=== PATIENT | male | born 1990 | race Caucasian/White ===

== ENCOUNTER 2020-03-24 01:41 | Emergency (ER) | payer SELFPAY ==
[~2020-03-24] VITALS: Ht 177.8 cm; Wt 74.8 kg
[2020-03-24] MEDS ORDERED: AMOCLA875 PO (01:57)
== END 2020-03-24 02:16 | disposition home or self-care (01) ==
LOC: ER 01:41
DX: H66.92 Otitis media, unspecified, left ear (principal); F17.210 Nicotine dependence, cigarettes, uncomplicated
CPT/HCPCS: 99283; J1885

== ENCOUNTER → 2020-08-16 | Outpatient (CLI) | payer OTHER ==
[~2020-08-16] MED LIST: AMOCLA875 PO
[2020-08-16 21:00] LABS: Creatinine, Urine Random 69.7 mg/dL (27.00-270.00); Microalb/Creat Ratio UR, Rand 10.086 mg/g (0.000-30.000); Microalbumin, Random Urine 7.03 mg/L (0.000-20.000)
== END | disposition home or self-care (01) ==
LOC: LAB SHORT 19:08 → LAB 19:08
PROVIDERS: Family Medicine
DX: E13.9 Other specified diabetes mellitus without complications (principal)
CPT/HCPCS: 82043; 82570

== ENCOUNTER → 2021-05-15 | Outpatient (CLI) | payer OTHER ==
[2021-05-15 12:04] LABS: BASOPHILS ABSOLUTE AUTO 0.02 K/mm3 (0.00-0.23); BASOPHILS PERCENT AUTO 1 % (0-2); EOSINOPHILS ABSOLUTE AUTO 0.02 K/mm3 (0.00-0.68); EOSINOPHILS PERCENT AUTO 1 % (0-6); Hematocrit 44.6 % (37.0-53.0); Hemoglobin 15.1 g/dL (13.5-17.5); IMMATURE GRAN PERCENT AUTO 0 % (0-1); LYMPHOCYTES ABSOLUTE AUTO 1.38 K/mm3 (0.84-5.20); LYMPHOCYTES PERCENT AUTO 46 % (21-46); MONOCYTES ABSOLUTE AUTO 0.31 K/mm3 (0.16-1.47); MONOCYTES PERCENT AUTO 10 % (4-13); Mean Corpuscular HGB 30.6 pg (26.0-34.0); Mean Corpuscular HGB Conc 33.9 g/dL (31.5-36.5); Mean Corpuscular Volume 90 fL (80-100); Mean Platelet Volume 10.6 fL (9.1-12.4); NEUTROPHILS PERCENT AUTO 43 % (41-73); Platelet Count 152 K/mm3 (150-400); RDW Coefficient Variation 11.7 % (11.7-14.2); RDW Standard Deviation 38.5 fL (35.1-46.3); Red Blood Cell Count 4.94 M/mm3 (4.30-5.90); White Blood Cell Count 3.03 K/mm3 (4.00-11.30)
[2021-05-15 12:56] LABS: Anion Gap 11 mmol/L (6-16); Blood Urea Nitrogen 10 mg/dL (8-24); Bun/Creatinine Ratio 14.1 (12.0-20.0); CO2, Blood 29 mmol/L (21-32); Calcium, Blood 8.7 mg/dL (8.5-10.1); Chloride, Blood 101 mmol/L (98-108); Creatinine, Blood 0.71 mg/dL (0.60-1.20); Glomerular Filtration Rate >60 (60-); Glucose, Blood 186 mg/dL (70-99); Potassium, Blood 4.2 mmol/L (3.5-5.5); Sodium, Blood 141 mmol/L (136-145)
== END ==
LOC: LAB SHORT 11:58 → LAB 11:58
PROVIDERS: Physician Assistant Surgical
DX: E86.0 Dehydration (principal)
CPT/HCPCS: 80048; 85025

== ENCOUNTER 2022-08-29 05:25 | Emergency (ER) | payer OTHER ==
[~2022-08-29] VITALS: Ht 182.9 cm; Wt 81.7 kg
[2022-08-29 08:45] VITALS: BP 117/84
== END 2022-08-29 09:00 | disposition home or self-care (01) ==
LOC: ER 05:25
DX: S92.251A Displaced fracture of navicular [scaphoid] of right foot, initial encounter for closed fracture (principal); F10.10 Alcohol abuse, uncomplicated; E10.9 Type 1 diabetes mellitus without complications; F17.210 Nicotine dependence, cigarettes, uncomplicated; V86.95XA Unspecified occupant of 3- or 4- wheeled all-terrain vehicle (ATV) injured in nontraffic accident, initial encounter
CPT/HCPCS: 73610; 73630; 99283-25; A9270

== ENCOUNTER 2023-01-21 17:49 | Inpatient (IN) | payer OTHER ==
[~2023-01-21] VITALS: Ht 175.3 cm; Wt 73.1 kg
[2023-01-21] VITALS (11 sets, daily range): BP systolic 120–144; BP diastolic 57–82
[~2023-01-21 17:49] MED LIST changes: -BASAGLAR K100 UNIT/1 SC; -NOVOLOG FL100 UNIT/3 SQ
[2023-01-21 18:02] LABS: Source, Urine Clean Catch
[2023-01-21 18:05] LABS: Appearance, Urine Clear (Clear); Bilirubin, Urine Neg (Neg); Blood, Urine Neg (Neg); Glucose Qualitative, Urine 4+ (Neg); Ketones, Urine 4+ (Neg); Leukocyte Esterase, Urine Neg (Neg); Nitrite, Urine Neg (Neg); Protein, Urine 2+ (Neg); Specific Gravity, Urine 1.025 (1.003-1.022); Urobilinogen, Urine NORM (Normal)
[2023-01-21 18:10] LABS: Color, Urine Pale Yellow (P-Yellow)
[2023-01-21 18:11] LABS: Red Blood Cells, Urine 0-2 /hpf (0-2); White Blood Cells, Urine 0-2 /hpf (0-5)
[2023-01-21 18:12] LABS: Bacteria Rare /hpf; Squamous Epithelial Cells Rare /hpf (Few)
[2023-01-21 18:30] LABS: Base Excess Venous -27.6 mmol/L; Bicarbonate Venous 7.4 mmol/L (24.0-30.0); PCO2 Venous 18.1 mmHg (38-42)
[2023-01-21 18:31] LABS: pH Blood Venous 6.97 (7.34-7.37)
[2023-01-21] MEDS ORDERED: BASAGLAR K100 UNIT/1 SC ×2 (19:40→19:43)
[2023-01-21] MEDS ORDERED: NOVOLOG FL100 UNIT/3 SQ (19:40)
[2023-01-21 19:54] LABS: Bun/Creatinine Ratio 20.7 (12.0-20.0); Creatinine, Blood 0.92 mg/dL (0.60-1.20); Potassium, Blood 6.2 mmol/L (3.5-5.5)
[2023-01-21 19:56] LABS: Calcium, Blood 5.2 mg/dL (8.5-10.1)
[2023-01-21 21:15] LABS: U Amphetamine Screen Not Detected; U Barbituate Screen Not Detected; U Benzodiazapine Screen Not Detected; U Buprenorphine Screen Not Detected; U Cannabinoids Screen Not Detected; U Cocaine Screen Not Detected; U Methadone Screen Not Detected; U Methamphetamine Screen Not Detected; U Opiates Screen Not Detected; U Oxycodone Screen Not Detected; U Phencyclidine Screen Not Detected; U Propoxyphene Screen Not Detected
--- NOTE | 2023-01-21 21:35 | NUR ---
ADMISSION ASSUME CARE. PT TRANSFERRED FROM ER BED TO ROOM BED. ALERT AND ORIENTED BUT DROWSY. BS CHECKED SEE LAB RESULTS. INSULIN AND NS INFUSING PER EMAR. URINAL GIVEN TO PATIENT FOR FREQUENT VOIDING. PATIENT ON ROOM AIR BUT TACHYPNEA AND DENIES SOB.
[2023-01-21 23:28] LABS: Bun/Creatinine Ratio 18.9 (12.0-20.0); Calcium, Blood 7.8 mg/dL (8.5-10.1); Creatinine, Blood 0.95 mg/dL (0.60-1.20); Potassium, Blood 6.5 mmol/L (3.5-5.5)
[2023-01-22] VITALS (21 sets, daily range): BP systolic 102–137; BP diastolic 63–81
[2023-01-22 03:02] LABS: BASOPHILS ABSOLUTE AUTO 0.04 K/mm3 (0.00-0.23); BASOPHILS PERCENT AUTO 0 % (0-2); EOSINOPHILS PERCENT AUTO 0 % (0-6); Hemoglobin 13.3 g/dL (13.5-17.5); IMMATURE GRAN ABSOLUTE AUTO 0.08 K/mm3 (0.00-0.10); IMMATURE GRAN PERCENT AUTO 1 % (0-1); LYMPHOCYTES PERCENT AUTO 7 % (21-46); MONOCYTES PERCENT AUTO 10 % (4-13); Mean Corpuscular HGB 31.7 pg (26.0-34.0); Mean Corpuscular HGB Conc 33.3 g/dL (31.5-36.5); Mean Corpuscular Volume 96 fL (80-100); Mean Platelet Volume 10.4 fL (9.1-12.4); NEUTROPHILS ABSOLUTE AUTO 14.28 K/mm3 (1.96-9.15); NEUTROPHILS PERCENT AUTO 82 % (41-73); Platelet Count 230 K/mm3 (150-400); RDW Coefficient Variation 11.6 % (11.7-14.2); RDW Standard Deviation 40.1 fL (35.1-46.3); Red Blood Cell Count 4.19 M/mm3 (4.30-5.90)
[2023-01-22 03:27] LABS: Bun/Creatinine Ratio 15.7 (12.0-20.0); Calcium, Blood 7.4 mg/dL (8.5-10.1); Creatinine, Blood 0.89 mg/dL (0.60-1.20); Potassium, Blood 4.8 mmol/L (3.5-5.5)
--- NOTE | 2023-01-22 07:00 | NUR ---
ASSUMPTION OF CARE PT RECEIVING D51/2NS 150ML/HR AND INSULIN GTT 3UNITS/HR. PT IS ALERT AND ORIETNED. REPORTS FEELING BETTER THAN YESTERDAY. HR 90S, BP STABLE. URINAL AT BEDSIDE. BED IN LOW POSITION AND CALL LIGHT WITHIN REACH.
[2023-01-22 07:12] LABS: Bun/Creatinine Ratio 16.4 (12.0-20.0); Calcium, Blood 7.7 mg/dL (8.5-10.1); Creatinine, Blood 0.79 mg/dL (0.60-1.20); Potassium, Blood 4.5 mmol/L (3.5-5.5)
--- NOTE | 2023-01-22 09:19 | NUR ---
UPDATE PT REPORTS HEADACHE, MEDICATED PER EMAR. PT REPORTS DISCOMFORT, ENCOURAGED PT TO SIT IN RECLINER. PT INDEPENDENTLY STANDS AND WALKS TO RECLINER. DR VILLAFUERTE AT BEDSIDE FOR EVAL. PLAN TO DISCONTINUE INSULIN GTT AND FLUIDS AND START SC REGIMEN. ADA DIET PLACED. PT TRANSITIONED TO MEDICAL STATUS. GIRLFRIEND LAMAR AT BEDSIDE, UPDATED ON PLAN OF CARE.
[2023-01-22 12:21] LABS: Bun/Creatinine Ratio 14.3 (12.0-20.0); Calcium, Blood 8.1 mg/dL (8.5-10.1); Creatinine, Blood 0.77 mg/dL (0.60-1.20); Potassium, Blood 4.8 mmol/L (3.5-5.5)
--- NOTE | 2023-01-22 12:21 | NUR ---
UPDATE PT RESTING IN RECLINER AND REQUESTS TO REST. HE REMAINS ALERT AND ORIENTED. INDEPENDENT WITH ADLS. CALL LIGHT WITHIN REACH.
[2023-01-22 13:23] LABS: Bun/Creatinine Ratio 15.9 (12.0-20.0); Calcium, Blood 8.5 mg/dL (8.5-10.1); Creatinine, Blood 0.76 mg/dL (0.60-1.20); Potassium, Blood 4.6 mmol/L (3.5-5.5)
--- NOTE | 2023-01-22 17:41 | NUR ---
SHIFT SUMMARY INSULIN GTT OFF THIS MORNING AND PT TRANSITIONED TO SC REGIMEN. HE REMAINS ALERT AND ORIENTED. INDEPENDENT IN ROOM AND WITH ADLS. PT REQUESTED TO REST MOST OF THE DAY. HE HAS BEEN SITTING UP IN THE RECLINER THIS MORNING. VSS THROUGHOUT THE SHIFT. PT HAS URINATED SEVERAL TIMES THIS SHIFT INDEPENDENTLY. HE DOES HAVE A 5/10 HEADACHE, MEDICATED PER EMAR. OTHERWISE HE REPORTS FEELING OVERALL BETTER THAN YESTERDAY. HIS GIRLFRIEND HAS BEEN VISITING AND UPDATED ON PLAN OF CARE.
--- NOTE | 2023-01-22 20:00 | NUR ---
ASSUMED CARE OF PT AT 1900. REPORT RECEIVED AT BEDSIDE. PT PRESENTS IN ROOM. SOMEWHAT FLAT AFFECT. PT'S S.O. IN ROOM WITH PT. PT ABLE TO ANSWER QUESTIONS. PLEASANT AND COOPERATIVE WITH CARE AND ASSESSMENT. PT MADE AWARE OF PENDING TRANSFER TO ROOM 304. PT IN AGREEMENT WITH TRANSFER. WILL REVIEW CHART AND PLAN OF CARE FOR THIS PT.
--- NOTE | 2023-01-22 21:37 | NUR ---
PT'S VSS. UP IN ROOM INDEPENDENTLY. PT DEMONSTRATES GOOD TECHNIQUE WITH INSULLIN ADMINISTRATION. DID SPEAK TO PT ABOUT ROTATION OF SITES FOR INJECTIONS. PT VERBALIZES UNDERSTANDING. REPORT GIVEN TO ABRAHAM SALAZAR. PT TO BE TRANSFERRED TO ROOM 304.
[2023-01-23 05:00] VITALS: BP 112/70
[2023-01-23 05:34] LABS: Bun/Creatinine Ratio 17.1 (12.0-20.0); Calcium, Blood 8.6 mg/dL (8.5-10.1); Creatinine, Blood 0.76 mg/dL (0.60-1.20); Potassium, Blood 4.1 mmol/L (3.5-5.5)
--- NOTE | 2023-01-23 06:08 | NUR ---
NOC SHIFT SUMMARY: PATIENT TRANSFERRED FROM ICU LAST NIGHT. HERE FOR DKA. PATIENT TO DISCHARGE HOME TODAY. A&O X4. INDEPENDENT.
[2023-01-23 07:32] VITALS: BP 108/72
--- NOTE | 2023-01-23 12:13 | NUR ---
DISCHARGE SUMMARY: PT EDUCATED ON DISCHARGE PLAN AND MEDICATIONS. PT VU. PT REPORTED HE WAS GOING TO ESTABLISH CARE WITH [facility] SO REFERRAL WAS SENT TO THEM. PT REPORTED HE WAS USING FRIENDS INSULIN AND ENDED UP RUNNING OUT. PT EDUCATED ON IMPORTANCE OF ESTABLISHING CARE WITH PCP AND MONITORING INSULIN NEEDS. PT REPORTED HE HAS ALL THE SUPPLIES HE NEEDS TO GIVE INSULIN JUST NOT INSULIN. RX SENT TO [facility]. BELONGINGS SENT WITH PT. PT DENIED NEED FOR WC AND LEFT WITH HIS FRIEND.
== END 2023-01-23 12:04 | disposition home or self-care (01) | DRG 638 ==
LOC: ER 17:49 → ICUE 21:29 → MEDS 21:29 → ICUE 21:35 → MEDS 01-22 21:46
PROVIDERS: Emergency Medicine; Internal Medicine; Nurse Practitioner Acute Care; Student in an Organized Health Care Education/Training Program; ADMIT Internal Medicine
DX: E10.10 Type 1 diabetes mellitus with ketoacidosis without coma (principal); E44.0 Moderate protein-calorie malnutrition; E87.5 Hyperkalemia; F10.20 Alcohol dependence, uncomplicated; E83.51 Hypocalcemia; F17.210 Nicotine dependence, cigarettes, uncomplicated; Z20.822 Contact with and (suspected) exposure to COVID-19; R51.9 Headache, unspecified; F12.90 Cannabis use, unspecified, uncomplicated; M79.10 Myalgia, unspecified site; Z68.23 Body mass index [BMI] 23.0-23.9, adult; Z79.899 Other long term (current) drug therapy; Z79.4 Long term (current) use of insulin; Z71.41 Alcohol abuse counseling and surveillance of alcoholic
CPT/HCPCS: 36415; 36416; 80048; 81001; 82010; 82330; 82803; 82947; 83690; 83735; 85025; 87040; 93005; 93010; 96361; 96374; 96375; 99285-25; A9270; J0612; J1790; J1815; J1885; J2405; J3475; J7030; J7042; J7120

== ENCOUNTER → 2023-01-21 | Outpatient (CLI) | payer OTHER ==
[~2023-01-21] MED LIST changes: +BASAGLAR K100 UNIT/1 SC; +NOVOLOG FL100 UNIT/3 SQ
[2023-01-21 17:00] LABS: BASOPHILS ABSOLUTE AUTO 0.15 K/mm3 (0.00-0.23); BASOPHILS PERCENT AUTO 1 % (0-2); EOSINOPHILS PERCENT AUTO 0 % (0-6); Hematocrit 50.3 % (37.0-53.0); Hemoglobin 16.3 g/dL (13.5-17.5); IMMATURE GRAN ABSOLUTE AUTO 0.13 K/mm3 (0.00-0.10); IMMATURE GRAN PERCENT AUTO 1 % (0-1); LYMPHOCYTES ABSOLUTE AUTO 1.46 K/mm3 (0.84-5.20); LYMPHOCYTES PERCENT AUTO 7 % (21-46); MONOCYTES ABSOLUTE AUTO 1.77 K/mm3 (0.16-1.47); MONOCYTES PERCENT AUTO 9 % (4-13); Mean Corpuscular HGB 31.3 pg (26.0-34.0); Mean Corpuscular HGB Conc 32.4 g/dL (31.5-36.5); Mean Corpuscular Volume 97 fL (80-100); Mean Platelet Volume 10.9 fL (9.1-12.4); NEUTROPHILS ABSOLUTE AUTO 17.21 K/mm3 (1.96-9.15); NEUTROPHILS PERCENT AUTO 83 % (41-73); Platelet Count 317 K/mm3 (150-400); RDW Coefficient Variation 11.6 % (11.7-14.2); RDW Standard Deviation 40.8 fL (35.1-46.3); Red Blood Cell Count 5.21 M/mm3 (4.30-5.90); White Blood Cell Count 20.72 K/mm3 (4.00-11.30)
[2023-01-21 17:13] LABS: Bun/Creatinine Ratio 13.5 (12.0-20.0); Creatinine, Blood 1.56 mg/dL (0.60-1.20); Potassium, Blood 5.6 mmol/L (3.5-5.5); Total Protein, Blood 8.9 g/dL (6.4-8.2)
[2023-01-21 17:28] LABS: Albumin, Blood 4.8 g/dL (3.4-5.0); Albumin/Globulin Ratio 1.2 (0.8-1.8); Bilirubin, Total 1.4 mg/dL (0.1-1.0); Calcium, Blood 9.7 mg/dL (8.5-10.1); Globulin, Blood 4.1 g/dL (2.2-4.0)
== END ==
LOC: LAB 16:56 → LAB SHORT 16:56
PROVIDERS: Physician Assistant
DX: E10.9 Type 1 diabetes mellitus without complications (principal)
CPT/HCPCS: 80053; 85025

== ENCOUNTER 2023-08-14 02:50 | Emergency (ER) | payer OTHER ==
[~2023-08-14] VITALS: Ht 175.3 cm; Wt 74.8 kg
[~2023-08-14 02:50] MED LIST changes: +BASAGLAR K100 UNIT/1 SC; +NOVOLOG FL100 UNIT/3 SQ
[2023-08-14 03:23] VITALS: BP 126/86
== END 2023-08-14 03:35 | disposition left against medical advice (07) ==
LOC: ER 02:50
DX: Z53.21 Procedure and treatment not carried out due to patient leaving prior to being seen by health care provider (principal)
CPT/HCPCS: 82947

== ENCOUNTER 2024-06-13 00:41 | Inpatient (IN) | payer OTHER ==
[~2024-06-13] VITALS: Ht 177.8 cm; Wt 71.8 kg
[2024-06-13] VITALS (29 sets, daily range): BP systolic 92–132; BP diastolic 62–82
[2024-06-13] MEDS ORDERED: NS 1,000 ML IV SCH (01:05)
[2024-06-13] MEDS ORDERED: Lactated Ringer's 1,000 ML IV ONE (01:10)
[2024-06-13] MEDS ORDERED: Metoclopramide HCl 5MG / ML 2ML Vial IV ONE (01:10)
[2024-06-13] MEDS ORDERED: Morphine Sulfate 4 MG/1 ML Injection IV ONE (01:10)
[2024-06-13 01:40] LABS: Base Excess Venous -21.3 mmol/L; PCO2 Venous 23.4 mmHg (38-42); pH Blood Venous 7.13 (7.34-7.37)
[2024-06-13 01:59] LABS: BASOPHILS ABSOLUTE AUTO 0.05 K/mm3 (0.00-0.23); BASOPHILS PERCENT AUTO 1 % (0-2); EOSINOPHILS ABSOLUTE AUTO 0.08 K/mm3 (0.00-0.68); EOSINOPHILS PERCENT AUTO 1 % (0-6); Hematocrit 46.8 % (37.0-53.0); Hemoglobin 15.7 g/dL (13.5-17.5); IMMATURE GRAN ABSOLUTE AUTO 0.07 K/mm3 (0.00-0.10); IMMATURE GRAN PERCENT AUTO 1 % (0-1); LYMPHOCYTES ABSOLUTE AUTO 1.69 K/mm3 (0.84-5.20); LYMPHOCYTES PERCENT AUTO 24 % (21-46); MONOCYTES PERCENT AUTO 10 % (4-13); Mean Corpuscular HGB 31.3 pg (26.0-34.0); Mean Corpuscular HGB Conc 33.5 g/dL (31.5-36.5); Mean Corpuscular Volume 93 fL (80-100); Mean Platelet Volume 10.3 fL (9.1-12.4); NEUTROPHILS ABSOLUTE AUTO 4.49 K/mm3 (1.96-9.15); NEUTROPHILS PERCENT AUTO 63 % (41-73); Platelet Count 248 K/mm3 (150-400); RDW Coefficient Variation 11.9 % (11.7-14.2); RDW Standard Deviation 40.9 fL (35.1-46.3); Red Blood Cell Count 5.02 M/mm3 (4.30-5.90); White Blood Cell Count 7.08 K/mm3 (4.00-11.30)
[2024-06-13 02:24] LABS: Magnesium, Blood 1.8 mg/dL (1.6-2.4)
[2024-06-13 02:35] LABS: Albumin, Blood 4.3 g/dL (3.4-5.0); Albumin/Globulin Ratio 1.2 (0.8-1.8); Bilirubin, Total 1.3 mg/dL (0.1-1.0); Creatinine, Blood 0.93 mg/dL (0.60-1.20); Globulin, Blood 3.7 g/dL (2.2-4.0); Potassium, Blood 4.4 mmol/L (3.5-5.5)
[2024-06-13] MEDS ORDERED: Potassium Chl 20MEQ/Water100ML 100 ML IV ONE (02:40)
[2024-06-13 02:45] LABS: Calcium, Ionized (POC) 1.21 mmol/L (1.10-1.46); Chloride (POC) 105 mmol/L (98-108); Creatinine (POC) 0.8 mg/dL (0.8-1.3); Glucose (ISTAT POC) 275 mg/dL (70-99); Hemoglobin (POC) 15.6 g/dL (13.5-17.5); Potassium (POC) 4.8 mmol/L (3.5-5.5); Sodium (POC) 132 mmol/L (135-148); Total CO2 (POC) 11 mmol/L (21-32)
[2024-06-13] MEDS ORDERED: Insulin Human Regular 100 UNIT in NS 100 ML IV SCH ×2 (02:45→04:15)
[2024-06-13 02:53] LABS: Beta-hydroxybutyrate 108.3 mg/dL (0.2-2.8); Bun/Creatinine Ratio 12.9 (12.0-20.0)
[2024-06-13] MEDS ORDERED: Ondansetron HCl 2 MG / ML 2ML Vial IV PRN (03:40)
[2024-06-13] MEDS ORDERED: Magnesium Hydroxide Conc 10 ML UDC PO PRN (03:40)
[2024-06-13] MEDS ORDERED: D5W-1/2NS 1,000 ML IV SCH (04:00)
--- NOTE | 2024-06-13 05:29 | NUR ---
ASSUMPTION OF CARE ASSUMED CARE OF PATIENT AT APPROXIMATELY 0423. PT ALERT AND ORIENTED, ANSWERS QUESTIONS APPROPRIATELY, FOLLOWS DIRECTION WHEN PROMPTED AND IS ABLE TO MAKE HIS NEEDS KNOWN. PT MOVES EXTREMITIES EQUALLY BILATERALLY. PT TANSFERED FROM ER GURNEY TO ICU BED VIA SBA. HR 80-90'S SINUS, MAP >65, PT DENIES CP/PRESSURE. PT ON RA, OXYGEN SATURATION >95%. ABDOMEN SOFT, BOWEL TONES HYPOACTIVE. PT USES URINAL TO VOID. PIV IN PLACE TO RAC AND LEFT WRIST. INSULIN INFUSING AT 4UNITS/HR, D5 1/2 NS INFUSING AT 150MLS/HR. BED IN LOWEST POSIITON, CALL LIGHT WITHIN REACH, CARE CONTINUES.
[2024-06-13] MEDS ORDERED: Acetaminophen 325 MG TABLET PO PRN (06:25)
[2024-06-13 06:38] LABS: Bun/Creatinine Ratio 12.3 (12.0-20.0); Calcium, Blood 8.5 mg/dL (8.5-10.1); Creatinine, Blood 0.73 mg/dL (0.60-1.20); Potassium, Blood 4.7 mmol/L (3.5-5.5)
[2024-06-13] MEDS ORDERED: Enoxaparin 40 MG/0.4 ML SYR SC SCH (09:00)
--- NOTE | 2024-06-13 09:06 | NUR ---
Assumed patient at 0700 Patient Jalen was sleeping upon arrival. Patient was easy to wake. He is alert and oriented x 4. Patient MAEW. PPPx4 extrem, no edema noted. Patient has two piv's with insulin gtt going at 4 unit/hr and D5 1/2 at 150/hr. Patient able to void 1025 clear yellow urine this am. He remains NPO till transition off insulin. Patient's headache has dissipated come this am. No other acute pain. VS stable pt remains afebrile. No family at bedside at this time.
[2024-06-13 10:09] LABS: Bun/Creatinine Ratio 10.4 (12.0-20.0); Calcium, Blood 8.2 mg/dL (8.5-10.1); Creatinine, Blood 0.67 mg/dL (0.60-1.20)
[2024-06-13] MEDS ORDERED: Potassium Chloride 20 MEQ in NS 90 ML IV ONE (11:15)
[2024-06-13 14:26] LABS: Bun/Creatinine Ratio 12.7 (12.0-20.0); Calcium, Blood 8.1 mg/dL (8.5-10.1); Creatinine, Blood 0.63 mg/dL (0.60-1.20)
--- NOTE | 2024-06-13 18:18 | NUR ---
END OF SHIFT NOTE PT HAD BEEN FEELING BETTER THE DAY HAS PROGRESSED. HE HAS BEEN ABLE TO EAT SOME MEALS THIS AFTERNOON AND HOLD THEM DOWN. HE STILL REMAINS ON INSULIN GTT AND D5 1/2 NS AT 150/HR. HE IS CURRENTLY AT 2.5U/HR OF INSULIN. PT IS TO HAVE ANOTHER CHEM MARTEL. THIS EVENING. HIS LAST ANION GAP AT 1300 WAS 13. HAS BEEN TO BEDSIDE TODAY, EAGER TO HAVE HIM HOME. VS HAVE REMAINED STABLE AND HE REMAINS AFEBRILE TODAY. CARE MANAGEMENT AND THE PHARMACYST IN ICU TODAY HAS WORKED DILIGENTLY TO FIND RESOURCES FOR HIM TO HAVE SO HE CAN CHECK HIS GLUCOSE LEVELS AND GIVE INSULIN COVERAGE WHEN HE IS ABLE TO GO HOME. WILL GIVE REPORT TO NEXT SHIFT TO RESUME CARE.
--- NOTE | 2024-06-13 18:47 | NUR ---
Pt. is awake in bed when he welcomed my visit. Spouse was present. Facilitated a lengthy life review. Pt. shared how he has dealt with his diabetes over the past several years. P.t verbalized that alena was not a formal part of his life but appreciated with visit. Will remain available tothe Pt. and spouse.
[2024-06-13 19:20] LABS: Albumin, Blood 3.1 g/dL (3.4-5.0); Albumin/Globulin Ratio 1.1 (0.8-1.8); Bilirubin, Total 1.2 mg/dL (0.1-1.0); Bun/Creatinine Ratio 16.8 (12.0-20.0); Calcium, Blood 8.1 mg/dL (8.5-10.1); Creatinine, Blood 0.65 mg/dL (0.60-1.20); Globulin, Blood 2.9 g/dL (2.2-4.0)
[2024-06-13] MEDS ORDERED: Insulin Glargine-Yfgn 100 Unit/mL 3 ML SYR SC SCH (20:00)
[2024-06-13 22:33] LABS: Albumin, Blood 3.1 g/dL (3.4-5.0); Bilirubin, Total 0.6 mg/dL (0.1-1.0); Bun/Creatinine Ratio 24.4 (12.0-20.0); Calcium, Blood 8.2 mg/dL (8.5-10.1); Creatinine, Blood 0.61 mg/dL (0.60-1.20); Potassium, Blood 3.7 mmol/L (3.5-5.5); Total Protein, Blood 6.1 g/dL (6.4-8.2)
--- NOTE | 2024-06-13 23:11 | NUR ---
UPDATE 2034 PT GIVEN 16 UNITS SUBQ GLARGINE INSULIN PER ORDERS, REMAINS ON INSULIN GTT AND EVERY 1 HOUR CBG CHECKS 0 PT SITTING UP IN BED EATING SNACK OF CRACKERS AND CHEESE 2229 CBG 152, ANION GAP CLOSED, CALLED AND SPOKE WITH MD, NEW ORDERS RECEIVED TO STOP INSULIN GTT, SLIDING SCALE INSULIN ORDERED WITH EVERY 6 HOUR CBG CHECKS 2250 INSULIN GTT AND D5 1/2 NS DC'D AT THIS TIME
[2024-06-14] VITALS (17 sets, daily range): BP systolic 90–136; BP diastolic 58–93
[2024-06-14] MEDS ORDERED: Insulin Human Lispro 100 Units/ML 3ML Syringe SC SCH
[2024-06-14 02:29] LABS: Albumin, Blood 3.1 g/dL (3.4-5.0); Bilirubin, Total 0.7 mg/dL (0.1-1.0); Bun/Creatinine Ratio 22.5 (12.0-20.0); Calcium, Blood 8.4 mg/dL (8.5-10.1); Creatinine, Blood 0.62 mg/dL (0.60-1.20); Globulin, Blood 3.1 g/dL (2.2-4.0); Potassium, Blood 4.1 mmol/L (3.5-5.5); Total Protein, Blood 6.2 g/dL (6.4-8.2)
--- NOTE | 2024-06-14 06:15 | NUR ---
SHIFT SUMMARY PT ALERT AND ORIENTED X4, FOLLOWS COMMANDS, ABLE TO MAKE NEEDS KNOWN, INDEPENDENT WITH ALL ADLS, GAIT STEADY, SR 70-90s, BP STABLE, RESP EVEN AND UNLABORED ON RA, SPO2 >92%, DENIES SOB OR CP, INSULIN GTT AND IVF DC'D AT 2250, PT MEDICATED WITH INSULIN GLARGINE 16 UNITS SUBQ PER EMAR AT 2030, CBG NOW EVERY 6 HOURS, HUMALOG SLIDING SCALE GIVEN SUBQ PER EMAR, MEDICATED X1 WITH TYLENOL FOR HEADACHE, EFFECTIVE FOR PAIN, PT SLEPT UNTIL O400 AND NOW AWAKE, DRINKING COFFEE, WATCHING TV AND WAITING FOR BREAKFAST TRAY, CBG DONE AT 0455 PER PT REQUEST AFTER COFFEE AND SLIDING SCALE GIVEN AT 0500, CBG RECHECKED AT 0600 AND HAD DECREASED FROM 291 TO 272, PT STATES HE WILL RECHECK IN AGAIN IN ABOUT AN HOUR BEFORE BREAKFAST AND MAY WANT MORE HUMALOG AT THAT TIME, SIDE RAILS UP X2 CALL LIGHT IN REACH
[2024-06-14 06:16] LABS: BASOPHILS ABSOLUTE AUTO 0.02 K/mm3 (0.00-0.23); BASOPHILS PERCENT AUTO 0 % (0-2); EOSINOPHILS ABSOLUTE AUTO 0.06 K/mm3 (0.00-0.68); EOSINOPHILS PERCENT AUTO 1 % (0-6); Hematocrit 39.9 % (37.0-53.0); IMMATURE GRAN ABSOLUTE AUTO 0.01 K/mm3 (0.00-0.10); IMMATURE GRAN PERCENT AUTO 0 % (0-1); LYMPHOCYTES ABSOLUTE AUTO 1.28 K/mm3 (0.84-5.20); LYMPHOCYTES PERCENT AUTO 27 % (21-46); MONOCYTES ABSOLUTE AUTO 0.48 K/mm3 (0.16-1.47); MONOCYTES PERCENT AUTO 10 % (4-13); Mean Corpuscular HGB 31.8 pg (26.0-34.0); Mean Corpuscular HGB Conc 35.1 g/dL (31.5-36.5); Mean Corpuscular Volume 91 fL (80-100); Mean Platelet Volume 9.6 fL (9.1-12.4); NEUTROPHILS ABSOLUTE AUTO 2.88 K/mm3 (1.96-9.15); NEUTROPHILS PERCENT AUTO 61 % (41-73); Platelet Count 183 K/mm3 (150-400); RDW Standard Deviation 40.1 fL (35.1-46.3); White Blood Cell Count 4.73 K/mm3 (4.00-11.30)
--- NOTE | 2024-06-14 06:43 | NUR ---
UPDATE CBG 202 AT THIS TIME, PT SCHEDULED INSULIN GLARGINE DUE AT 0700 AND PT STATES " LETS WAIT UNTIL I GET MY BREAKFAST BEFORE TAKING THAT DUE TO HOW MUCH CBG HAS DROPPED IN THE LAST 40 MINUTES". WILL LET AM NURSE KNOW OF PT REQUESTS AND NEEDS. PT STATES HE WILL SPEAK WITH MD TODAY ABOUT HIS INSULIN SCHEDULE BECAUSE HE FEELS LIKE IF HE TAKES WHAT IS ORDERED NOW HIS BLOOD SUGARS ARE GOING TO BE TOO LOW AND ITS TOO MUCH LONG ACTING ORDERED
[2024-06-14] MEDS ORDERED: Insulin Glargine-Yfgn 100 Unit/mL 3 ML SYR SC SCH ×2 (07:00→09:00)
--- NOTE | 2024-06-14 07:34 | NUR ---
ASSUMPTION OF CARE: ASSUMED CARE OF PATIENT. PATIENT SITTING UP IN BED. PATIENT IN NO APPARENT DISTRESS. PATIENT DENIES NAUSEA/VOMITING. PATIENT REPORTS IMPROVEMENT IN HIS HEADACHE.PATIENT REPORTED HIS PRIMARY CONCERN IS THAT THE GLARGINE HAS BEEN ORDERED BID, BUT HE TAKES IT AT HOME DAILY. REQUESTING TO HOLD OFF ON THE LONG-ACTING INSULIN UNTIL WE DISCUSS THE PLAN WITH DR. APONTE. PATIENT STABLE ON ROOM AIR WITH SPO2 >96%. DENIES SHORTNESS OF BREATH OR DIFFICULTY BREATHING. VITALS STABLE WITH MAPS >65 AND HR IN THE 70'S AT THIS TIME. PER NIGHT RN, PATIENT HAS BEEN VOIDING WITHOUT DIFFICULTY AND UP INDEPENDENTLY IN THE ROOM WITHOUT DIFFICULTY. PATIENT DENIES OTHER NEEDS AT THIS TIME. CALL LIGHT WITHIN REACH.
[2024-06-14] MEDS ORDERED: Insulin Human Lispro 100 Units/ML 3ML Syringe SC ONE ×3 (08:10→12:45)
--- NOTE | 2024-06-14 12:53 | NUR ---
OBTAINED VERBAL CONSENT FROM PATIENT TO ADMINISTER MEDICATIONS.
[2024-06-14 13:15] LABS: Bun/Creatinine Ratio 19.9 (12.0-20.0); Calcium, Blood 8.3 mg/dL (8.5-10.1); Creatinine, Blood 0.55 mg/dL (0.60-1.20); Potassium, Blood 3.8 mmol/L (3.5-5.5)
[2024-06-14] MEDS ORDERED: Insulin Glargine-Yfgn 100 Unit/mL 3 ML SYR SC ONE (14:00)
[2024-06-14] MEDS ORDERED: Lactated Ringer's 500 ML IV SCH (14:00)
[2024-06-14 16:43] LABS: Bun/Creatinine Ratio 16.4 (12.0-20.0); Calcium, Blood 8.3 mg/dL (8.5-10.1); Creatinine, Blood 0.67 mg/dL (0.60-1.20); Potassium, Blood 3.7 mmol/L (3.5-5.5)
[2024-06-14] MEDS ORDERED: AMOCLA875 PO (17:41)
--- NOTE | 2024-06-14 18:17 | NUR ---
DISCHARGE SUMMARY: PER MD ORDERS, PATIENT READY FOR DISCHARGE. DISCHARGE RX FAXED TO [facility] PER PATIENT REQUEST. DISCHARGE INSTRUCTIONS PROVIDED TO PATIENT AND HIS SO. ALL QUESTIONS AND CONCERNS ADDRESSED. PATIENT DISCHARGED WITH THIS RN AND SO. PATIENT DECLINED WHEELCHAIR AND AMBULATED WITHOUT ASSISTANCE. PATIENT STABLE AT TIME OF DISCHARGE. PATIENT DENIED NEEDS AT TIME OF DISCHARGE. THROUGHOUT THE SHIFT, PATIENT DENIED PAIN OR DISCOMFORT. PATIENT TOLERATING PO INTAKE WITHOUT NAUSEA OR GASTIRIC UPSET. VITALS STABLE WITH MAPS >65 AND HR IN THE 70S. PATIENT STABLE ON ROOM AIR WITH SPO2 >96%. PATIENT INDEPENDENT IN THE ROOM. PATIENT RECEIVED EDUCATION ON UTILIZING GOOD RX. PATIENT REPORTED THAT HE HAS USED THIS BEFORE AND IS COMFORTABLE WITH USING THIS TO OBTAIN HIS PRESCRIPTIONS. PATIENT AWARE OF HIS UPCOMING APPOINTMENT WITH [facility] ON 06/20. PATIENT IS AWARE OF NEEDING TO FOLLOW UP WITH THE [facility] PHYSICAL THERAPIST. DR. APONTE NOTIFIED OF AFTERNOON BMP AND PATIENT'S INSULIN AND DEXACOM G7 NEEDS. DISCHARGE INSTRUCTIONS AND RX MODIFIED TO MEET PATIENT'S NEEDS.
== END 2024-06-14 18:06 | disposition home or self-care (01) | DRG 639 ==
LOC: ER 00:41 → ICUE 03:38 → ERHOLD 03:38 → ICUE 03:38
PROVIDERS: Family Medicine; Nurse Practitioner Acute Care; Student in an Organized Health Care Education/Training Program; ADMIT Student in an Organized Health Care Education/Training Program
DX: E10.10 Type 1 diabetes mellitus with ketoacidosis without coma (principal); T38.3X6A Underdosing of insulin and oral hypoglycemic [antidiabetic] drugs, initial encounter; K04.7 Periapical abscess without sinus; F10.90 Alcohol use, unspecified, uncomplicated; F17.200 Nicotine dependence, unspecified, uncomplicated; E86.0 Dehydration; Z91.138 Patient's unintentional underdosing of medication regimen for other reason; Z91.141 Patient's other noncompliance with medication regimen due to financial hardship; Z79.4 Long term (current) use of insulin
CPT/HCPCS: 80047; 80048; 80053; 82010; 82803; 82947; 83735; 85014; 85025; 96361; 96365; 96375; 99285-25; A9270; C1751; J1650; J1815; J2270; J2765; J3480; J7030; J7042; J7120

== ENCOUNTER 2024-11-10 02:35 | Emergency (ER) | payer OTHER ==
[~2024-11-10] VITALS: Ht 180.3 cm; Wt 74.8 kg
[2024-11-10] MEDS ORDERED: NS 1,000 ML IV SCH (03:00)
[2024-11-10 03:35] LABS: BASOPHILS ABSOLUTE AUTO 0.03 K/mm3 (0.00-0.23); BASOPHILS PERCENT AUTO 1 % (0-2); EOSINOPHILS ABSOLUTE AUTO 0.13 K/mm3 (0.00-0.68); EOSINOPHILS PERCENT AUTO 3 % (0-6); Hematocrit 38.9 % (37.0-53.0); Hemoglobin 13.3 g/dL (13.5-17.5); IMMATURE GRAN ABSOLUTE AUTO 0.02 K/mm3 (0.00-0.10); IMMATURE GRAN PERCENT AUTO 0 % (0-1); LYMPHOCYTES ABSOLUTE AUTO 1.36 K/mm3 (0.84-5.20); LYMPHOCYTES PERCENT AUTO 28 % (21-46); MONOCYTES ABSOLUTE AUTO 0.79 K/mm3 (0.16-1.47); MONOCYTES PERCENT AUTO 16 % (4-13); Mean Corpuscular HGB Conc 34.2 g/dL (31.5-36.5); Mean Corpuscular Volume 87 fL (80-100); NEUTROPHILS ABSOLUTE AUTO 2.49 K/mm3 (1.96-9.15); NEUTROPHILS PERCENT AUTO 52 % (41-73); NRBC ABSOLUTE 0.00 K/mm3 (0.00-0.02); NRBC Auto 0.0 /100 WBC (0.0-0.2); Platelet Count 158 K/mm3 (150-400); RDW Coefficient Variation 11.5 % (11.7-14.2); RDW Standard Deviation 37.1 fL (35.1-46.3)
[2024-11-10] MEDS ORDERED: Ketorolac Tromethamine 15mg Vial IV ONE (04:00)
[2024-11-10 04:07] LABS: Alanine Aminotransfer (ALT/SGP 21.0 U/L (12-78); Albumin, Blood 3.1 g/dL (3.4-5.0); Albumin/Globulin Ratio 1.0 (0.8-1.8); Anion Gap 8.0 mmol/L (3-11); Aspartate Aminotrans (AST/SGOT 16.0 U/L (12-37); Bilirubin, Total 0.5 mg/dL (0.1-1.0); Blood Urea Nitrogen 9.0 mg/dL (8-24); CO2, Blood 26.0 mmol/L (21-32); Calcium, Blood 8.2 mg/dL (8.5-10.1); Chloride, Blood 106.0 mmol/L (98-108); Creatinine, Blood 0.63 mg/dL (0.60-1.20); Globulin, Blood 3.2 g/dL (2.2-4.0); Glucose, Blood 288.0 mg/dL (70-99); Potassium, Blood 4.1 mmol/L (3.5-5.5); Sodium, Blood 136.0 mmol/L (136-145); Total Protein, Blood 6.3 g/dL (6.4-8.2)
[2024-11-10] MEDS ORDERED: AMOCLA875 PO (04:54)
[2024-11-10] MEDS ORDERED: IBUP600 PO (04:54)
[2024-11-10] MEDS ORDERED: ACET500 PO (04:54)
[2024-11-10 05:09] VITALS: BP 100/69
== END 2024-11-10 05:12 | disposition home or self-care (01) ==
LOC: ER 02:35
PROVIDERS: Emergency Medicine
DX: K02.9 Dental caries, unspecified (principal); E10.10 Type 1 diabetes mellitus with ketoacidosis without coma; F17.210 Nicotine dependence, cigarettes, uncomplicated; Z79.4 Long term (current) use of insulin
CPT/HCPCS: 80053; 82010; 85025; A9270; J1885; J7030